=== PATIENT | female | born 1945 | race Caucasian/White ===

== ENCOUNTER 2018-02-07 10:31 | Outpatient (RCR) | payer MEDICARE, OTHER ==
[~2018-02-07 10:31] MED LIST: AMLO5TAB2 PO; ASP325TEC PO; ASPI-587 PO; ASPI1CPM PO; CRESTOR PO; HYDR-3062 PO; HYDR25TA4 PO; OMEP40CA36 PO; TELM1TAB3 PO
== END 2018-02-15 15:28 | disposition home or self-care (01) ==
PROVIDERS: ATTEND Neurological Surgery
DX: M54.2 Cervicalgia (principal); M54.5 Low back pain

== ENCOUNTER 2018-10-18 05:14 | Emergency (ER) | payer MEDICARE, OTHER ==
[~2018-10-18] VITALS: Ht 165.1 cm; Wt 68.0 kg
--- OUTSIDE RECORDS SUMMARY | 2018-10-18 05:20 | XMS REPORT | Continuity of Care Document ---
Author Organization Unknown Address Unknown Allergies Active Description Code Type Severity Reaction Onset Reported/Identified Relationship to Patient Clinical Status Yes iodine [id number] Drug Allergy Unknown N/A 11/29/2013 Yes levofloxacin [id number] Drug Allergy Unknown N/A 11/29/2013 Medications There is no data. Problems Date Dx Coded Attending Type Code Diagnosis Diagnosed By 04/19/1527 ETHEL PECK MD, Ot M54.2 CERVICALGIA 04/19/1527 ETHEL PECK MD, Ot M54.5 LOW BACK PAIN 12/01/2013 AMELIE ENGLE DO Ot 272.4 HYPERLIPIDEMIA NEC/NOS 12/01/2013 AMELIE ENGLE DO Ot 311 DEPRESSIVE DISORDER NEC 12/01/2013 AMELIE ENGLE DO Ot 401.9 HYPERTENSION NOS 12/01/2013 AMELIE ENGLE DO Ot 434.91 CEREBRAL ART OCCLUSION NOS W CEREBRAL IN 12/01/2013 AMELIE ENGLE DO Ot 728.87 MUSCLE WEAKNESS (GENERALIZED) 12/01/2013 AMELIE ENGLE DO Ot 781.94 FACIAL WEAKNESS 12/01/2013 AMELIE ENGLE DO Ot V17.3 FAM HX-ISCHEM HEART DIS 05/10/2014 ANAI JHA MD Ot 401.9 HYPERTENSION NOS 05/10/2014 ANAI JHA MD Ot 782.3 EDEMA 11/30/2017 ETHEL PECK M43.8X5 Other specified deforming dorsopathies, thoracolumbar region 11/30/2017 ETHEL PECK M48.02 Spinal stenosis, cervical region 11/30/2017 ETHEL PECK 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 Results Radiology Report from [id number] on 11/30/2017 16:50:33 DATE OF PROCEDURE: 11/30/2017

ACCESSION NUMBER#: [id number]

PROCEDURES: Cervical spine MRI without contrast.

INDICATION: Neck pain.

COMPARISON: MRI of the cervical spine without contrast dated 08/29/05.

FINDINGS: There is minimal retrolisthesis of C4 on C5 and C5 on C6, similar to the prior exam. Alignment is otherwise unremarkable. There are moderate to advanced degenerative endplate changes at C4-C6, which have progressed since the prior exam. Bone marrow signal is otherwise unremarkable. No abnormal signal in the cervical spinal cord. Subcentimeter T2 hyperintense lesion in the left thyroid lobe is nonspecific. The visualized paravertebral soft tissues are otherwise unremarkable. The cervical carotid and vertebral artery flow voids are preserved.

C2-C3: No spinal canal or neural foraminal narrowing.

C3-C4: Normal progression of posterior disc osteophyte complex, which indents the ventral right cervical cord. No neural foraminal narrowing.

C4-C5: Posterior disc osteophyte complex contacts the cervical cord with no tension. There is moderate left and mild right neural foraminal narrowing. These findings have progressed since prior exam.

C5-C6: Posterior disc osteophyte complex results in moderate spinal canal narrowing where it indents the ventral cervical cord and has progressed since the prior exam. There is advanced left and moderate right neural foraminal narrowing.

C6-C7: No spinal canal or neural foraminal narrowing.

C7-T1: No spinal canal or neural foraminal narrowing.

IMPRESSION:
1. Interval progression of spondylotic changes and results in multilevel spinal canal narrowing detailed above. This is greatest at C5-C6 where it is moderate.
2. Scattered moderate and advanced neural foraminal narrowing also detailed above level by level.
3. No abnormal signal in the cervical spinal cord. No acute osseous findings.

[1528]
DT#: 11/30/2017 [[id number]] Radiology Report from [id number] on 11/30/2017 16:50:33 DATE OF PROCEDURE: 11/30/2017

ACCESSION NUMBER#: [id number]

PROCEDURES: Lumbar spine MRI without contrast.

INDICATIONS: Low back pain. & lt;br>
COMPARISON: None available.

FINDINGS: There is advanced right apex thoracolumbar curvature centered at L1-L2. There is minimal retrolisthesis of L2 on L3. Scattered moderate to advanced degenerative endplate changes. Bone marrow signal is otherwise unremarkable. No abnormal signal in the conus, which terminates at L1. Normal morphology of the cauda equ jennifer. No acute findings in the visualized abdomen or pelvis.

L1-L2: No spinal canal or lateral recess narrowing. The lumbar curvature and disc space height loss results in moderate left neural foraminal narrowing. No right neural foraminal narrowing.

L2-L3: No substantial spinal canal or lateral recess narrowing. Disc space height loss, facet arthropathy and lumbar curvature result in advanced left and moderate right neural foraminal narrowing.

L3-L4: No spinal canal or lateral recess narrowing. There is moderate to advanced bilateral neural foraminal narrowing.

L4-L5: No spinal canal or lateral recess narrowing. There is advanced right neural foraminal narrowing. No left neural foraminal narrowing.

L5-S1: No spinal canal or neural foraminal narrowing. Disc space height loss and facet arthropathy result in moderate right and mild left neural foraminal narrowing.

IMPRESSION:
1. Advanced thoracolumbar scoliotic curvature.
2. scoliosis compliances spondylotic changes result in multilevel moderate and advanced neural foraminal narrowing detailed above.
3. No high-grade spinal canal or lateral recess narrowing.
4. No acute osseous findings.

[1533]
DT#: 11/30/2017 [[id number]] Encounters ACCT No. Visit Date/Time Discharge Status Pt. Type Provider Facility Loc./Unit Complaint [id number] 11/30/2017 11:58:00 11/30/2017 16:58:00 DIS Outpatient ETHEL PECK [id number] 12/01/2017 06:08:03 ACT Document Registration [id number] 02/07/2018 10:31:00 02/15/2018 15:28:00 DIS Outpatient LIV LUJAN, ETHEL Hannon [facility] REHAB UPPER AND LOWER BACK PAIN [id number] 05/10/2014 14:58:00 05/10/2014 17:07:00 DIS Emergency ANAI JHA MD [facility] ER HIGH BP [id number] 11/29/2013 11:46:00 12/01/2013 15:25:00 DIS Inpatient AMELIE ENGLE DO [facility] ICU STROKE SYM
[2018-10-18] MEDS ORDERED: MECLIZINE 25 MG (ANTIVERT) TAB PO STA (05:22)
[2018-10-18] MEDS ORDERED: LACTATED RINGERS 1,000 ML IV ONE (05:22)
[2018-10-18] MEDS ORDERED: SCOPOLAMINE 1.5 MG (TRANSDERM-SCOP) PATCH TD ONE (05:30)
[2018-10-18] MEDS ORDERED: ONDANSETRON 4 MG/2 ML (SDV) Z0FRAN IVP ONE (05:30)
[2018-10-18 05:31] LABS: BASOPHILS % (AUTO) 0 % (0-10); EOSINOPHILS # (AUTO) 0.1 10^3/uL (0.0-0.3); EOSINOPHILS % (AUTO) 1 % (0-10); HEMATOCRIT 36 % (35-52); LYMPHOCYTES % (AUTO) 36 % (12-44); MEAN CORPUSCULAR HEMOGLOBIN 27 PG (25-34); MEAN CORPUSCULAR HGB CONC 33 G/DL (32-36); MEAN CORPUSCULAR VOLUME 83 FL (80-99); MEAN PLATELET VOLUME 8.5 FL (7.4-10.4); MONOCYTES # (AUTO) 0.6 X 10^3 (0.0-1.0); MONOCYTES % (AUTO) 10 % (0-12); NEUTROPHILS % (AUTO) 53 % (42-75); PLATELET COUNT 309 10^3/uL (130-400); WHITE BLOOD COUNT 5.6 10^3/uL (4.3-11.0)
[2018-10-18] MEDS ORDERED: BUPR-168 (05:38)
[2018-10-18] MEDS ORDERED: CLOP75TA28 (05:38)
[2018-10-18] MEDS ORDERED: BACL10TA (05:38)
[2018-10-18] MEDS ORDERED: ROSU10TA27 (05:38)
[2018-10-18] MEDS ORDERED: AMLO5TAB9 (05:38)
[2018-10-18] MEDS ORDERED: TELM1TAB27 (05:38)
[2018-10-18] MEDS ORDERED: NITR100C10 (05:38)
[2018-10-18 05:43] LABS: INR 0.9 (0.8-1.4); PROTHROMBIN TIME PATIENT 12.4 SEC (12.2-14.7)
[2018-10-18 05:51] LABS: ALANINE AMINOTRANSFERASE 17 U/L (0-55); ALBUMIN 4.2 GM/DL (3.2-4.5); ALKALINE PHOSPHATASE 71 U/L (40-136); BILIRUBIN,TOTAL 0.3 MG/DL (0.1-1.0); BUN/CREATININE RATIO 21; CALCIUM 9.7 MG/DL (8.5-10.1); CARBON DIOXIDE 23 MMOL/L (21-32); CHLORIDE 106 MMOL/L (98-107); GFR ESTIMATED > 60; GLUCOSE 111 MG/DL (70-105); POTASSIUM 3.8 MMOL/L (3.6-5.0); SODIUM 137 MMOL/L (135-145); TOTAL PROTEIN 6.5 GM/DL (6.4-8.2)
--- NOTE | 2018-10-18 06:04 | ED General ---
General Chief Complaint: Dizziness/Syncope Stated Complaint: DIZZY Nursing Triage Note: nausea/dizziness Nursing Sepsis Screen: No Definite Risk Source of Information: Patient (PT IS LIMITED HISTORIAN) History of Present Illness Date Seen by Provider: October 18, 2018 Time Seen by Provider: 05:15 Initial Comments PT ARRIVES VIA EMS FROM HOME PT WOKE UP 30 MINUTES AGO AND WAS VERY DIZZY AND NAUSEATED EMS GAVE ZOFRAN 4 MG AND NAUSEA IS BETTER NO HEADACHE NO PARESTHESIAS OR MOTOR DEFICITS NO VISION CHANGES NO FEVER OR RECENT ILLNESS NO CHEST PAIN, NO SHORTNESS OF BREATH, NO PALPITATIONS PT STATES SHE HAS HAD THIS "ONCE BEFORE--WITH THE START OF A MIGRAINE" PT STATES SHE HAS NOT BEEN ILL RECENTLY, BUT PER MED RECONCILIATION, PT HAS BEEN PRESCRIBED: 09/20/18--MECLIZINE AND AMOXIL, BY DR. DUNBAR 09/24/18--BACTRIM, BY DR. DUNBAR 10/04/18--ZITHROMAX, BY DR. PAINTING 10/15/18--MACROBID, BY DR. DUNBAR PT STATES NO MEDICATION CHANGES EXCEPT CRESTOR DOSE WAS INCREASED 2 WEEKS AGO PCP: [facility]IAN: MATT SHAH Allergies and Home Medications Allergies Coded Allergies: iodine (Unverified Allergy, Unknown, 11/29/13) levofloxacin (Unverified Allergy, Unknown, 11/29/13) Home Medications Aspirin 81 Mg Tablet., 81 MG PO DAILY, (Reported) Hydrochlorothiazide 25 Mg Tablet, 25 MG PO DAILY Prescribed by: ANAI JHA on 05/10/14 1655 Meclizine HCl 25 Mg Tablet, 25-50 MG PO Q6H Prescribed by: SHEILA SON on 10/18/18633 Omeprazole 40 Mg Capsule., 40 MG PO DAILY, (Reported) Ondansetron 4 Mg Tab.rapdis, 4 MG PO Q4H Prescribed by: SHEILA SON on 10/18/18633 Scopolamine 1 Each Patch.td72, 1 EACH TD Q72 HOURS Prescribed by: SHEILA SON on 10/18/18633 Patient Home Medication List Home Medication List Reviewed: Yes Review of Systems Review of Systems Constitutional: see HPI; No chills, No diaphoresis; dizziness; No fever, No malaise, No weakness EENTM: no symptoms reported Respiratory: no symptoms reported; No short of breath Cardiovascular: no symptoms reported; No chest pain, No edema, No palpitations, No syncope Gastrointestinal: see HPI; No abdominal pain, No diarrhea; nausea; No vomiting Genitourinary: no symptoms reported Musculoskeletal: no symptoms reported Skin: no symptoms reported Psychiatric/Neurological: No Symptoms Reported; Denies Headache, Denies Numbness, Denies Paresthesia, Denies Seizure, Denies Tingling, Denies Tremors, Denies Weakness Hematologic/Lymphatic: No Symptoms Reported Immunological/Allergic: no symptoms reported Past Vfllpas-Bvcpuq-Xusubf Hx Patient Social History Alcohol Use: Denies Use Recreational Drug Use: No Smoking Status: Never a Smoker 2nd Hand Smoke Exposure: No Recent Foreign Travel: No Contact w/Someone Who Travel: No Recent Infectious Disease Expo: No Recent Hopitalizations: No Immunizations Up To Date Tetanus Booster (TDap): Unknown PED Vaccines UTD: No Date of Pneumonia Vaccine: Nov 29, 2009 Date of Influenza Vaccine: Feb 18, 2014 Seasonal Allergies Seasonal Allergies: Yes Past Medical History Surgeries: Yes (SINUS SURGERY X 2; COLON RESECTION FOR DIVERTICULAR DISEASE; HERNIA REPAIR; HYST/BSO; ) Abdominal, Bowel Surgery, Section, Gallbladder, Hysterectomy Respiratory: No Cardiac: Yes (AAA--NO SURGERY, IS FOLLOWED BY DR. 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 Sexually Transmitted Disease: No HIV/AIDS: No Genitourinary: Yes UTI-Chronic Gastrointestinal: Yes (COLON RESECTION FOR DIVERTICULAR DISEASE; S/P JAQUELINE; S/P HERNIA REPAIR) Abdominal Hernia, Diverticulosis, Gall Bladder Disease Musculoskeletal: Yes Arthritis Endocrine: No HEENT: Yes (CHRONIC SINUSITIS--S/P SINUS SURGERY X 2 ) Loss of Vision: Denies Hearing Impairment: Denies Cancer: No Psychosocial: No Integumentary: No Blood Disorders: No Adverse Reaction/Blood Tranf: No Family Medical History Abdominal aortic aneurysm 19 FATHER Chest pain 19 MOTHER ([place] passed at the age of 85 during and bipass surgery) Congenital heart disease G8 SISTER (quad bi pass) Congestive heart failure 19 FATHER Family history: Diabetes mellitus 19 MOTHER G8 BROTHER (passed 60yro) G8 SISTER Family history: Hypertension 19 FATHER G8 BROTHER G8 BROTHER G8 BROTHER G8 SISTER G8 SISTER G8 SISTER G8 SISTER Hypercholesterolemia G8 BROTHER G8 BROTHER G8 BROTHER G8 SISTER Stroke 19 FATHER 19 MOTHER G8 BROTHER (57 stroke) G8 BROTHER Physical Exam Vital Signs Vital Signs - First Documented 10/18/18 05:15 Temp 97.6 Pulse 93 Resp 16 B/P (MAP) 147/71 (96) Pulse Ox 99 O2 Delivery Room Air Capillary Refill : Less Than 3 Seconds Height, Weight, BMI Height: 5'5.00" Weight: 150lbs. 0.0oz. 68.917782xg; 26.57 BMI Method:Stated General Appearance: No Apparent Distress, WD/WN, Other (SMILING, LAUGHING ON ARRIVAL, MOVES HEAD AND SITS UP ON OWN WITHOUT DIFFICULTY, BUT THEN C/O DIZ ZINESS ON SITTING UP; PT ABLE TO AMBULATE TO AND FROM BATHROOM WITH MINIMAL ASSIST. 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 II- XII Norm as Tested, Other (MILDLY ANXIOUS) Skin: Normal Color, Warm/Dry; No Rash Progress/Results/Core Measures Suspected Sepsis Recent Fever Within 48 Hours: No Infection Criteria Present: Documented Infection New/Unexplained Altered Menta: No Sepsis Screen: No Definite Risk SIRS Temperature:97.6 Pulse: 93 Respiratory Rate: 16 Laboratory Tests 10/18/18 05:20: White Blood Count 5.6 Blood Pressure 147 /71 Mean: 96 Laboratory Tests 10/18/18 05:20: Creatinine 0.80, INR Comment 0.9, Platelet Count 309, Total Bilirubin 0.3 Results/Orders Lab Results Laboratory Tests Test 10/18/18 05:10/18/18 06:00 Range/Units White Blood Count 5.6 4.3-11.0 10^3/uL Red Blood Count 4.39 4.35-5.85 10^6/uL Hemoglobin 12.0 11.5-16.0 G/DL Hematocrit 36 35-52 % Mean Corpuscular Volume 83 80-99 FL Mean Corpuscular Hemoglobin 27 25-34 PG Mean Corpuscular Hemoglobin Concent 33 32-36 G/DL Red Cell Distribution Width 16.0 H 10.0-14.5 % Platelet Count 309 130-400 10^3/uL Mean Platelet Volume 8.5 7.4-10.4 FL Neutrophils (%) (Auto) 53 42-75 % Lymphocytes (%) (Auto) 36 12-44 % Monocytes (%) (Auto) 10 0-12 % Eosinophils (%) (Auto) 1 0-10 % Basophils (%) (Auto) 0 0-10 % Neutrophils # (Auto) 3.0 1.8-7.8 X 10^3 Lymphocytes # (Auto) 2.0 1.0-4.0 X 10^3 Monocytes # (Auto) 0.6 0.0-1.0 X 10^3 Eosinophils # (Auto) 0.1 0.0-0.3 10^3/uL Basophils # (Auto) 0.0 0.0-0.1 10^3/uL Prothrombin Time 12.4 12.2-14.7 SEC INR Comment 0.9 0.8-1.4 Activated Partial Thromboplast Time 30 24-35 SEC Sodium Level 137 135-145 MMOL/L Potassium Level 3.8 3.6-5.0 MMOL/L Chloride Level 106 98-107 MMOL/L Carbon Dioxide Level 23 21-32 MMOL/L Anion Gap 8 5-14 MMOL/L Blood Urea Nitrogen 17 7-18 MG/DL Creatinine 0.80 0.60-1.30 MG/DL Estimat Glomerular Filtration Rate > 60 BUN/Creatinine Ratio 21 Glucose Level 111 H 70-105 MG/DL Calcium Level 9.7 8.5-10.1 MG/DL Corrected Calcium 9.5 8.5-10.1 MG/DL Magnesium Level 2.0 1.8-2.4 MG/DL Total Bilirubin 0.3 0.1-1.0 MG/DL Aspartate Amino Transf (AST/SGOT) 17 5-34 U/L Alanine Aminotransferase (ALT/SGPT) 17 0-55 U/L Alkaline Phosphatase 71 40-136 U/L Troponin I < 0.028 <0.028 NG/ML Total Protein 6.5 6.4-8.2 GM/DL Albumin 4.2 3.2-4.5 GM/DL TSH [place] Testing 1.53 0.35-4.94 UIU/ML Urine Color YELLOW Urine Clarity CLEAR Urine pH 7 5-9 Urine Specific [place] 1.010 L 1.016-1.022 Urine Protein NEGATIVE NEGATIVE Urine Glucose (UA) NEGATIVE NEGATIVE Urine Ketones NEGATIVE NEGATIVE Urine Nitrite NEGATIVE NEGATIVE Urine Bilirubin NEGATIVE NEGATIVE Urine Urobilinogen NORMAL NORMAL MG/DL Urine Leukocyte Esterase NEGATIVE NEGATIVE Urine RBC (Auto) NEGATIVE NEGATIVE Urine RBC NONE /HPF Urine WBC NONE /HPF Urine Squamous Epithelial Cells 0-2 /HPF Urine Crystals NONE /LPF Urine Bacteria NEGATIVE /HPF Urine Casts NONE /LPF Urine Mucus NEGATIVE /LPF Urine Culture Indicated NO My Orders Orders - SHEILA SON DO Ed Iv/Invasive Line Start (10/18/18 05:22) Ekg Tracing (10/18/18 05:22) Monitor-Rhythm Ecg Trace Only (10/18/18 05:22) Ct Head Wo-R/O Stroke (10/18/18 05:22) Chest 1 View, Ap/Pa Only (10/18/18 05:22) Cbc With Automated Diff (10/18/18 05:22) Comprehensive Metabolic Panel (10/18/18 05:22) Magnesium (10/18/18 05:22) Protime With Inr (10/18/18 05:22) Partial Thromboplastin Time (10/18/18 05:22) Thyroid Analyzer (10/18/18 05:22) Troponin I (10/18/18 05:22) Ua Culture If Indicated (10/18/18 05:22) Ed Iv/Invasive Line Start (10/18/18 05:22) Lactated Ringers (Lr 1000 Ml Iv Solution (10/18/18 05:22) Ondansetron Injection (Zofran Injectio (10/18/18 05:30) Meclizine Tablet (Antivert Tablet) (10/18/18 05:22) Scopolamine Patch (Transderm-Scop Patch) (10/18/18 05:30) Medications Given in ED Current Medications Medications Dose Ordered Sig/Kristal Route Start Time Stop Time Status Last Admin Dose Admin Lactated Ringer's 1,000 ml @ 0 mls/hr Q0M ONCE IV 10/18/18 05:22 10/18/18 05:37 DC 10/18/18 05:29 0 MLS/HR Ondansetron HCl 4 mg ONCE ONCE IVP 10/18/18 05:30 10/18/18 05:37 DC 10/18/18 05:30 4 MG Scopolamine 1.5 mg ONCE ONCE TD 10/18/18 05:30 10/18/18 05:37 DC 10/18/18 05:30 1.5 MG Vital Signs/I&O 10/18/18 05:15 Temp 97.6 Pulse 93 Resp 16 B/P (MAP) 147/71 (96) Pulse Ox 99 O2 Delivery Room Air Capillary Refill : Less Than 3 Seconds Blood Pressure Mean: 96 Progress Note : Progress Note NAUSEA IMPROVED WITH ZOFRAN DIZZINESS IMPROVED WITH SCOPOLAMINE AND ANTIVERT NO DETERIORATION IN PT'S CONDITION DURING ER STAY. ECG Initial ECG Impression Date: October 18, 2018 Initial ECG Impression Time: 06:00 Initial ECG Rate: 74 Initial ECG Rhythm: Normal Sinus Diagnostic Imaging Comments CXR--NO ACUTE PROCESS, PENDING RADIOLOGIST REVIEW CT HEAD--NO ACUTE PROCESS, PER [facility] VIA PHONE AT [phone] Reviewed: Reviewed by Me Departure Impression Primary Impression: Vertigo Disposition: HOME, SELF-CARE Condition: Improved Departure-Patient Inst. Referrals: ETHEL PECK MD (PCP) Primary Care Physician BETTINA Patient Instructions: Vertigo (a Type of Dizziness) (DC) Add. Discharge Instructions: HOME, REST LOTS OF CLEAR LIQUIDS SLOW POSITION CHANGES FOLLOW UP WITH YOUR DR ON SUNDAY FOR FURTHER CARE RETURN TO ER IF WORSE All discharge instructions reviewed with patient and/or family. Voiced understanding. Scripts Ondansetron (Ondansetron Odt) 4 Mg Tab.rapdis 4 MG PO Q4H for Nausea/Vomiting, #10 TAB Prov: SHEILA SON DO 10/18/18 Scopolamine (Transderm-Scop) 1 Each Patch.td72 1 EACH TD Q72 HOURS for Dizziness, #3 PATCH Prov: HUYSHEILA K DO 10/18/18 Meclizine HCl (Meclizine HCl) 25 Mg Tablet 25-50 MG PO Q6H for Dizziness, #30 TAB Prov: SHEILA SON DO 10/18/18 SHEILA SON DO October 18, 2018 06:04
[2018-10-18 06:10] LABS: TSH (THYROID ANALYZER) 1.53 UIU/ML (0.35-4.94)
[2018-10-18 06:10] LABS: BILIRUBIN,URINE NEGATIVE (NEGATIVE); CLARITY,URINE CLEAR; COLOR,URINE YELLOW; GLUCOSE, URINE (UA) NEGATIVE (NEGATIVE); KETONES,URINE NEGATIVE (NEGATIVE); LEUKOCYTE ESTERASE ,URINE NEGATIVE (NEGATIVE); NITRITE,URINE NEGATIVE (NEGATIVE); PH,URINE 7 (5-9); PROTEIN,URINE NEGATIVE (NEGATIVE); UROBILINOGEN,URINE NORMAL (NORMAL)
[2018-10-18 06:19] LABS: BACTERIA,URINE NEGATIVE /HPF; SQUAMOUS EPITHELIAL CELL,UR 0-2 /HPF
[2018-10-18] MEDS ORDERED: ONDA4TAB11 PO (06:34)
[2018-10-18] MEDS ORDERED: SCOP1PAT11 TD (06:34)
[2018-10-18] MEDS ORDERED: MECL-106 PO (06:34)
[2018-10-18 06:40] VITALS: BP 127/64
--- NOTE | 2018-10-18 06:41 | Diagnostic Imaging Report ---
PROCEDURE: CT head wo r/o stroke. TECHNIQUE: Multiple contiguous axial images were obtained through the brain without the use of intravenous contrast. Auto Exposure Controls were utilized during the CT exam to meet ALARA standards for radiation dose reduction. DATE: October 18, 2018. COMPARISON: MRI brain December 01, 2013. CT head November 29, 2013. INDICATION: 72-year-old female, dizziness. FINDINGS: The patient is status post functional endoscopic sinus surgery. The visualized portions of the paranasal sinuses, mastoid air cells, and middle ears are well aerated. The ventricles and cerebral spinal fluid spaces are of normal size and configuration for the patient's age. There is no mass effect or midline shift. There is no acute intracranial hemorrhage. There is no abnormal extra-axial fluid collection. IMPRESSION: 1. No identified acute intracranial abnormality. Dictated by: Dictated on workstation # [id number]
--- NOTE | 2018-10-18 06:42 | Diagnostic Imaging Report ---
EXAMINATION: Chest radiograph, portable AP view. DATE: October 18, 2018 at 0540 hours. INDICATION: 72-year-old female, dizziness. COMPARISON: None. FINDINGS: Heart size and mediastinal contours are unremarkable. There is no identified pneumothorax. There is no large pleural effusion. There is no identified focal airspace consolidation. There is a thoracolumbar dextroscoliosis. IMPRESSION: No identified acute cardiopulmonary abnormality. Dictated by: Dictated on workstation # [id number]
== END 2018-10-18 06:43 | disposition home or self-care (01) ==
LOC: EDUNIT# 05:14 → ER 05:16
DX: R42 Dizziness and giddiness (principal); E78.00 Pure hypercholesterolemia, unspecified; I10 Essential (primary) hypertension; G43.909 Migraine, unspecified, not intractable, without status migrainosus; Z82.49 Family history of ischemic heart disease and other diseases of the circulatory system; Z87.19 Personal history of other diseases of the digestive system; Z87.440 Personal history of urinary (tract) infections; Z87.448 Personal history of other diseases of urinary system; Z86.73 Personal history of transient ischemic attack (TIA), and cerebral infarction without residual deficits; Z91.041 Radiographic dye allergy status; Z88.1 Allergy status to other antibiotic agents; Z79.82 Long term (current) use of aspirin; Z98.890 Other specified postprocedural states; Z90.49 Acquired absence of other specified parts of digestive tract; Z90.710 Acquired absence of both cervix and uterus
CPT/HCPCS: 36415; 70450; 71045; 80053; 81000; 83735; 84443; 84484; 85025; 85610; 85730; 93005; 93041; 96361; 96374

== ENCOUNTER 2018-12-09 11:26 | Outpatient (RCR) | payer MEDICARE, OTHER ==
[~2018-12-09 11:26] MED LIST changes: +AMLO5TAB9; +BACL10TA; +BUPR-168; +CLOP75TA28; +MECL-106 PO; +NITR100C10; +ONDA4TAB11 PO; +ROSU10TA28; +SCOP1PAT11 TD; +TELM1TAB27
== END 2019-01-28 10:42 | disposition home or self-care (01) ==
PROVIDERS: ATTEND Podiatrist Foot Surgery
DX: M76.62 Achilles tendinitis, left leg (principal)

== ENCOUNTER 2019-02-10 09:03 | Emergency (ER) | payer MEDICARE, OTHER ==
[~2019-02-10] VITALS: Ht 160 cm; Wt 70.4 kg
[2019-02-10] MEDS ORDERED: ONDANSETRON 4 MG (ZOFRAN) ORAL DISSOLVE TAB SL STA (09:41)
--- NOTE | 2019-02-10 09:47 | ED EENT ---
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 PT STATES SHE CURRENTLY TAKES PLAVIX. NOSE CLAMP APPLIED AT TIME OF TRIAGE. Source: patient Exam Limitations: no limitations (GLENN GRIGGS STUDENT) History of Present Illness Date Seen by Provider: Feb 10, 2019 Time Seen by Provider: 09:30 Initial Comments The patient is a wd/wn 73 y/o female who is here with a chief complaint of nosebleed. She reports that the nosebleed started about 1/2 hour ago. There was no trauma involved and she has not had any previous occurrences. She denies any recent illnesses, rashes, or bruises. She sometimes uses an intranasal steroid but is not currently. She reports having seasonal allergies. Timing/Duration: abrupt, this morning Severity: mild Location: nose (GLENN GRIGGS STUDENT) Timing/Duration: abrupt, this morning Severity: mild Location: nose Prearrival Treatment: squeezing nostrils Associated Symptoms: No cough, No facial pain/swelling, No fever, No sinus infection, No sore throat (BRIAN POON MD) Allergies and Home Medications Allergies Coded Allergies: iodine (Unverified Allergy, Unknown, 11/29/13) levofloxacin (Unverified Allergy, Unknown, 11/29/13) Home Medications Aspirin 81 Mg Tablet.dr, 81 MG PO DAILY, (Reported) Hydrochlorothiazide 25 Mg Tablet, 25 MG PO DAILY Prescribed by: ANAI JHA on 05/10/14 1655 Meclizine HCl 25 Mg Tablet, 25-50 MG PO Q6H Prescribed by: SHEILA SON on 10/18/18633 Omeprazole 40 Mg Capsule.dr, 40 MG PO DAILY, (Reported) Ondansetron 4 Mg Tab.rapdis, 4 MG PO Q4H Prescribed by: SHEILA SON on 10/18/18633 Scopolamine 1 Each Patch.td72, 1 EACH TD Q72 HOURS Prescribed by: SHEILA SON on 10/18/18633 Patient Home Medication List Home Medication List Reviewed: Yes (BRIAN POON MD) Review of Systems Review of Systems Constitutional: No fever, No malaise Nose: clots, epistaxis Respiratory: cough; No short of breath (GLENN GRIGGS STUDENT) Constitutional: see HPI Eyes: No Symptoms Reported Ears: No Symptoms Reported Nose: see HPI, epistaxis; denies pain Respiratory: cough; No short of breath Cardiovascular: no symptoms reported Skin: no symptoms reported (BRIAN POON MD) Past Joruqxx-Tfmfmh-Wsbkyy Hx Past Med/Social Hx: Reviewed Nursing Past Med/Soc Hx (BRIAN POON MD) Patient Social History Alcohol Use: Denies Use Recreational Drug Use: No Smoking Status: Never a Smoker 2nd Hand Smoke Exposure: No Recent Foreign Travel: No Contact w/Someone Who Travel: No Recent Infectious Disease Expo: No Recent Hopitalizations: No Physical Abuse: No Sexual Abuse: No Mistreated: No Fear: No (GLENN GRIGGS) Immunizations Up To Date Tetanus Booster (TDap): Unknown PED Vaccines UTD: No Date of Pneumonia Vaccine: Nov 29, 2009 Date of Influenza Vaccine: Feb 18, 2014 (GLENN GRIGGS) Seasonal Allergies Seasonal Allergies: Yes (GLENN GRIGGS) Past Medical History Surgeries: Yes Abdominal, Bowel Surgery, Section, Gallbladder, Hysterectomy Respiratory: No Cardiac: Yes (AAA--NO SURGERY, IS FOLLOWED BY DR. 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 STUDENT) Family Medical History Reviewed Nursing Family Hx (BRIAN POON MD) Abdominal aortic aneurysm 19 FATHER Chest pain 19 MOTHER (NE passed at the age of 85 during and bipass surgery) Congenital heart disease G8 SISTER (quad bi pass) Congestive heart failure 19 FATHER Family history: Diabetes mellitus 19 MOTHER G8 BROTHER (passed 60yro) G8 SISTER Family history: Hypertension 19 FATHER G8 BROTHER G8 BROTHER G8 BROTHER G8 SISTER G8 SISTER G8 SISTER G8 SISTER Hypercholesterolemia G8 BROTHER G8 BROTHER G8 BROTHER G8 SISTER Stroke 19 FATHER 19 MOTHER G8 BROTHER (57 stroke) G8 BROTHER Physical Exam Vital Signs Vital Signs - First Documented 02/10/19 09:06 Temp 36.2 Pulse 76 Resp 20 B/P (MAP) 152/79 (103) Pulse Ox 100 O2 Delivery Room Air (BRIAN POON MD) Height, Weight, BMI Height: 5'5.00" Weight: 150lbs. 0.0oz. 68.144298th; 27.00 BMI Method:Stated General Appearance: WD/WN, no apparent distress Eyes: bilateral eye PERRL, bilateral eye EOMI Ears: bilateral ear auricle normal, bilateral ear canal normal, bilateral ear TM normal Nose: active bleeding, dried blood Mouth/Throat: normal mouth inspection, pharynx normal Cardiovascular: regular rate, rhythm, no edema, no murmur Respiratory: lungs clear, normal breath sounds Neurologic/Psychiatric: alert, normal mood/affect, oriented x 3 Skin: normal color, warm/dry (GLENN GRIGGS MED STUDENT) General Appearance: WD/WN, no apparent distress Eyes: bilateral eye normal inspection Nose: other (small bruise noted after clamp place. Clamp readjusted. Small amount of blood noted to the posterior pharynx. Inspection of the intranasal area on the left shows no bleeding. On the right shows old blood but not active bleeding. She does appear to have an ooze and clamp was replaced.) Neck: full range of motion, supple Cardiovascular: regular rate, rhythm, no edema Respiratory: lungs clear, normal breath sounds Neurologic/Psychiatric: alert, oriented x 3 (BRIAN POON MD) Progress/Results/Core Measures Results/Orders Lab Results Laboratory Tests Test 02/10/19 09:47 Range/Units White Blood Count 5.2 4.3-11.0 10^3/uL Red Blood Count 4.30 L 4.35-5.85 10^6/uL Hemoglobin 11.8 11.5-16.0 G/DL Hematocrit 36 35-52 % Mean Corpuscular Volume 84 80-99 FL Mean Corpuscular Hemoglobin 27 25-34 PG Mean Corpuscular Hemoglobin Concent 33 32-36 G/DL Red Cell Distribution Width 14.5 10.0-14.5 % Platelet Count 294 130-400 10^3/uL Mean Platelet Volume 8.6 7.4-10.4 FL Neutrophils (%) (Auto) 67 42-75 % Lymphocytes (%) (Auto) 22 12-44 % Monocytes (%) (Auto) 10 0-12 % Eosinophils (%) (Auto) 1 0-10 % Basophils (%) (Auto) 0 0-10 % Neutrophils # (Auto) 3.5 1.8-7.8 X 10^3 Lymphocytes # (Auto) 1.1 1.0-4.0 X 10^3 Monocytes # (Auto) 0.5 0.0-1.0 X 10^3 Eosinophils # (Auto) 0.1 0.0-0.3 10^3/uL Basophils # (Auto) 0.0 0.0-0.1 10^3/uL (BRIAN POON MD) My Orders Orders - BRIAN POON MD Cbc With Automated Diff (02/10/19 09:41) Ondansetron Oral Dissolve Tab (Zofran (02/10/19 09:41) Oxymetazoline 0.05% Nasal [place] (Afrin 0. (02/10/19 21:00) Oxymetazoline 0.05% Nasal [place] (Afrin 0. (02/10/19 10:43) (BRIAN POON MD) Vital Signs/I&O 02/10/19 09:06 Temp 36.2 Pulse 76 Resp 20 B/P (MAP) 152/79 (103) Pulse Ox 100 O2 Delivery Room Air (BRIAN POON MD) Blood Pressure Mean: 103 Progress Progress Note : Time: 09:45 Progress Note The patient is resting comfortably in the exam room. Nasal compression is appl ied and bleeding has slowed. She will be examined with CBC, and bleeding studies. (GLENN GRIGGS MED STUDENT) Progress Note : Progress Note I had seen and evaluated the patient and agree with above except as indicated. I Have directed the plan of care. Patient is here with acute onset of nosebleed about 30 minutes prior to arrival. She is on Plavix. Nose clamp placed on arrival. Still had small amount of oozing noted and clamp repositioned. She did cool water rinses of the mouth and posterior pharynx. We will check CBC. Monitor patient. 1115: We have tried waiting time and continued clamping but knows continue to bleed. She is developing blood clots in the posterior pharynx. This does appear to be more posterior. Ultimately we placed a 7.5 cm rapid Rhino after Afrin nasal spray. We were able to achieve good hemostasis and no more bleeding noted. I did call and make appointment for her at Dr. De Jesus's office for 02/14/19 at 3:45 PM for recheck. They have requested initiation of antibiotics and we will initiate Keflex As a prescription. Overall feeling better. I will send a copy of the chart to Dr. De Jesus's office. Discharged home with return precautions. Patient verbalize understanding instructions and agreement with plan. (BRIAN POON MD) Departure Impression Primary Impression: Epistaxis Disposition: HOME, SELF-CARE Condition: Stable Departure-Patient Inst. Decision time for Depature: 11:19 (BRIAN POON MD) Referrals: LUCIO MONDRAGON DPRanjit (PCP) Primary Care Physician Patient Instructions: Nosebleeds (DC) Add. Discharge Instructions: All discharge instructions reviewed with patient and/or family. Voiced understanding. Keep the packing in place until seen on Sunday at Dr. De Jesus's office. You have appointment with Dr. De Jesus's office at 3:45 PM on 02/14/19 at his office in [place]. Take medications as directed. Return to the emergency department earlier if you have return of bleeding, fever, vomiting, weakness or other concerns as needed. You may take Tylenol/acetaminophen up to 1000 mg every 6-8 hours as needed for pain. Scripts Cephalexin (Cephalexin) 500 Mg Tablet 500 MG PO TID, #21 TAB 0 Refills Prov: BRIAN POON MD 02/10/19 Copy Copies To 1: RIMA DE JESUS MD, JOSHUA K MED STUDENT Feb 10, 2019 09:47 BRAIN PONO MD Feb 10, 2019 10:04
[2019-02-10 09:56] LABS: BASOPHILS % (AUTO) 0 % (0-10); EOSINOPHILS # (AUTO) 0.1 10^3/uL (0.0-0.3); EOSINOPHILS % (AUTO) 1 % (0-10); HEMATOCRIT 36 % (35-52); HEMOGLOBIN 11.8 G/DL (11.5-16.0); LYMPHOCYTES # (AUTO) 1.1 X 10^3 (1.0-4.0); LYMPHOCYTES % (AUTO) 22 % (12-44); MEAN CORPUSCULAR HEMOGLOBIN 27 PG (25-34); MEAN CORPUSCULAR HGB CONC 33 G/DL (32-36); MEAN CORPUSCULAR VOLUME 84 FL (80-99); MEAN PLATELET VOLUME 8.6 FL (7.4-10.4); MONOCYTES # (AUTO) 0.5 X 10^3 (0.0-1.0); MONOCYTES % (AUTO) 10 % (0-12); NEUTROPHILS # (AUTO) 3.5 X 10^3 (1.8-7.8); NEUTROPHILS % (AUTO) 67 % (42-75); PLATELET COUNT 294 10^3/uL (130-400); RED CELL DISTRIBUTION WIDTH 14.5 % (10.0-14.5); WHITE BLOOD COUNT 5.2 10^3/uL (4.3-11.0)
[2019-02-10] MEDS ORDERED: OXYMETAZOLINE (AFRIN) 0.05% NA 15 ML BTL ONE (10:43)
[2019-02-10] MEDS ORDERED: CEPH500T PO (11:21)
[2019-02-10 11:30] VITALS: BP 145/76
[2019-02-10] MEDS ORDERED: OXYMETAZOLINE (AFRIN) 0.05% NA 15 ML BTL SCH (21:00)
== END 2019-02-10 11:30 | disposition home or self-care (01) ==
LOC: EDUNIT# 09:03 → ER 09:04
DX: R04.0 Epistaxis (principal); I10 Essential (primary) hypertension; E78.00 Pure hypercholesterolemia, unspecified; G43.909 Migraine, unspecified, not intractable, without status migrainosus; Z86.73 Personal history of transient ischemic attack (TIA), and cerebral infarction without residual deficits; Z88.8 Allergy status to other drugs, medicaments and biological substances; Z88.1 Allergy status to other antibiotic agents; Z87.440 Personal history of urinary (tract) infections; Z90.49 Acquired absence of other specified parts of digestive tract; Z79.82 Long term (current) use of aspirin; Z90.710 Acquired absence of both cervix and uterus; Z90.722 Acquired absence of ovaries, bilateral; Z82.49 Family history of ischemic heart disease and other diseases of the circulatory system
CPT/HCPCS: 36415; 85025

== ENCOUNTER 2021-04-07 21:00 | Emergency (ER) | payer MEDICARE, OTHER ==
[~2021-04-07] VITALS: Ht 157.5 cm; Wt 68.0 kg
[~2021-04-07 21:00] MED LIST changes: +AMLO-250; -AMLO5TAB9; +CEPH500T PO; -MECL-106 PO; +MECL-149 PO; +SCOP1PAT10 TD; -SCOP1PAT11 TD; -TELM1TAB27; +TELM1TAB36
[2021-04-07] MEDS ORDERED: potassium (21:16)
[2021-04-07] MEDS ORDERED: PANT40TA52 (21:16)
[2021-04-07] MEDS ORDERED: SPIR25TA5 (21:16)
[2021-04-07] MEDS ORDERED: KETOROLAC 30 MG/ML VIAL IVP ONE (21:30)
[2021-04-07] MEDS ORDERED: ONDANSETRON 4 MG/2 ML (SDV) Z0FRAN IVP ONE (21:30)
[2021-04-07] MEDS ORDERED: LACTATED RINGERS 1,000 ML IV SCH (21:30)
[2021-04-07] MEDS ORDERED: MECLIZINE 25 MG (ANTIVERT) TAB PO ONE (21:30)
--- NOTE | 2021-04-07 21:36 | ED General ---
General Chief Complaint: Dizziness/Syncope Stated Complaint: DIZZINESS/LIGHTHEADED/NAUSEA Nursing Triage Note: c/o dizziness, nausea, headache. Source of Information: Patient Exam Limitations: No Limitations (RITA BOGGS APRN) History of Present Illness Date Seen by Provider: Apr 07, 2021 Time Seen by Provider: 21:32 Initial Comments To ER by private vehicle with reports of dizziness nausea headache that began earlier this evening. She gets headaches about once a month but does not usually have dizziness associated with it. The dizziness is worse when she lays flat. She has nausea as well. She denies any shortness of breath though she has had a cough. She has had some diarrhea but recently started Metamucil which seemed to help. She reports that over the past 15 years she has had C. difficile [address] Ramirez from gastroenterology. After starting the Metamucil her stools have firmed up. She denies any fevers mucousy or bloody stools or abdominal pain. Timing/Duration: 1-2 Days Severity: Moderate Associated Systoms: Cough; No Fever/Chills; Headaches, Nausea/Vomiting; No Weakness (RITA BOGGS APRN) Allergies and Home Medications Allergies Coded Allergies: iodine (Unverified Allergy, Unknown, 11/29/13) levofloxacin (Unverified Allergy, Unknown, 11/29/13) Patient Home Medication List Home Medication List Reviewed: Yes (RITA BOGGS APRN) Bupropion HCl (Bupropion HCl) 75 Mg Tablet, (Reported) Entered as Reported by: ANTWON JAMIL on 10/18/18537 Last Action: Last Taken Edited Omeprazole (Omeprazole) 40 Mg Capsule.dr 40 MG PO DAILY, (Reported) Entered as Reported by: YARIEL CHERRY on 11/29/13 0935 Last Action: Last Taken Edited Pantoprazole Sodium (Pantoprazole Sodium) 40 Mg Tablet., (Reported) Entered as Reported by: ANTWON JAMIL on 04/07/212115 Last Action: New Order Rosuvastatin Calcium (Rosuvastatin Calcium) 10 Mg Tablet, (Reported) Entered as Reported by: ANTWON JAMIL on 10/18/18537 Last Action: Last Taken Edited Spironolactone (Spironolactone) 25 Mg Tablet, (Reported) Entered as Reported by: ANTWON JAMIL on 04/07/212115 Last Action: New Order Telmisartan/Hydrochlorothiazid (Telmisartan-Hctz 80-12.5 mg Tb) 1 Each Tablet, (Reported) Entered as Reported by: ANTWON JAMIL on 10/18/18537 Last Action: Last Taken Edited [potassium] , (Reported) Entered as Reported by: ANTWON JAMIL on 04/07/212115 Last Action: New Order Discontinued Medications Amlodipine Besylate (Amlodipine Besylate) 5 Mg Tablet, (Reported) Discontinued Reason: No Longer Taking Entered as Reported by: ANTWON JAMIL on 10/18/18537 Last Action: Discontinued Aspirin (Aspir 81) 81 Mg Tablet.dr, 81 MG PO DAILY, (Reported) Discontinued Reason: No Longer Taking Entered as Reported by: EVERETTE REDDY on 05/10/14 1533 Last Action: Discontinued Baclofen (Baclofen) 10 Mg Tablet, (Reported) Discontinued Reason: No Longer Taking Entered as Reported by: ANTWON JAMIL on 10/18/18537 Last Action: Discontinued Bupropion HCl (Bupropion HCl) 75 Mg Tablet, (Reported) Discontinued Reason: No Longer Taking Entered as Reported by: ANTWON JAMIL on 10/18/18537 Last Action: Discontinued Cephalexin (Cephalexin) 500 Mg Tablet, 500 MG PO TID Discontinued Reason: No Longer Taking Prescribed by: BRIAN POON on 02/10/19 1121 Last Action: Discontinued Clopidogrel Bisulfate (Clopidogrel) 75 Mg Tablet, (Reported) Discontinued Reason: No Longer Taking Entered as Reported by: ANTWON JAMIL on 10/18/18537 Last Action: Discontinued Hydrochlorothiazide (Hydrochlorothiazide) 25 Mg Tablet, 25 MG PO DAILY Discontinued Reason: No Longer Taking Prescribed by: ANAI JHA on 05/10/14 1655 Last Action: Discontinued Meclizine HCl (Meclizine HCl) 25 Mg Tablet, 25-50 MG PO Q6H Discontinued Reason: No Longer Taking Prescribed by: SHEILA SON on 10/18/18633 Last Action: Discontinued Nitrofurantoin Monohyd/M-Cryst (Nitrofurantoin Mcpherson-Mcr 100 mg) 100 Mg Capsule, (Reported) Discontinued Reason: No Longer Taking Entered as Reported by: ANTWON JAMIL on 10/18/18537 Last Action: Discontinued Ondansetron (Ondansetron Odt) 4 Mg Tab.rapdis, 4 MG PO Q4H Discontinued Reason: No Longer Taking Prescribed by: SHEILA SON on 10/18/18633 Last Action: Discontinued Scopolamine (Transderm-Scop) 1 Each Patch.td72, 1 EACH TD Q72 HOURS Discontinued Reason: No Longer Taking Prescribed by: SHEILA SON on 10/18/18633 Last Action: Discontinued Review of Systems Review of Systems Constitutional: see HPI, malaise, weakness EENTM: see HPI Respiratory: see HPI, cough Cardiovascular: no symptoms reported Genitourinary: no symptoms reported Musculoskeletal: no symptoms reported Skin: no symptoms reported Psychiatric/Neurological: No Symptoms Reported Hematologic/Lymphatic: No Symptoms Reported (RITA BOGGS APRN) Past Vkwhrgb-Rtnuyw-Pvkwdx Hx Patient Social History Tobacco Use?: No Substance use?: No Alcohol Use?: No Pt feels they are or have been: No (RITA BOGGS APRN) Immunizations Up To Date Tetanus Booster (TDap): Unknown PED Vaccines UTD: No (RITA BOGGS APRN) Seasonal Allergies Seasonal Allergies: Yes (RITA BOGGS APRN) Past Medical History Surgery/Hospitalization HX: htn,high cholesterol, headaches, c-diff, c-spine sx. Surgeries: Yes Abdominal, Bowel Surgery, Section, Gallbladder, Hysterectomy Respiratory: No Cardiac: Yes (AAA--NO SURGERY, IS FOLLOWED BY DR. 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 Sexually Transmitted Disease: No HIV/AIDS: No Genitourinary: Yes UTI-Chronic Gastrointestinal: Yes (COLON RESECTION FOR DIVERTICULAR DISEASE; S/P JAQUELINE; S/P HERNIA REPAIR) Abdominal Hernia, Diverticulosis, Gall Bladder Disease Musculoskeletal: Yes Arthritis Endocrine: No HEENT: Yes (CHRONIC SINUSITIS--S/P SINUS SURGERY X 2 ) Loss of Vision: Denies Hearing Impairment: Denies Cancer: No Psychosocial: No Integumentary: No Blood Disorders: No Adverse Reaction/Blood Tranf: No (RITA BOGGS APRN) Family Medical History Abdominal aortic aneurysm 19 FATHER Chest pain 19 MOTHER (MA passed at the age of 85 during and bipass surgery) Congenital heart disease G8 SISTER (quad bi pass) Congestive heart failure 19 FATHER Family history: Diabetes mellitus 19 MOTHER G8 BROTHER (passed 60yro) G8 SISTER Family history: Hypertension 19 FATHER G8 BROTHER G8 BROTHER G8 BROTHER G8 SISTER G8 SISTER G8 SISTER G8 SISTER Hypercholesterolemia G8 BROTHER G8 BROTHER G8 BROTHER G8 SISTER Stroke 19 FATHER 19 MOTHER G8 BROTHER (57 stroke) G8 BROTHER Physical Exam Vital Signs Vital Signs - First Documented 04/07/21 21:06 Temp 36.8 Pulse 89 Resp 16 B/P (MAP) 149/87 (107) Pulse Ox 99 O2 Delivery Room Air (KYA GARRETT MD) Vital Signs Capillary Refill : Less Than 3 Seconds (RITA BOGGS APRN) Height, Weight, BMI Height: 5'5.00" Weight: 150lbs. 0.0oz. 68.782206bc; 27.00 BMI Method:Stated General Appearance: No Apparent Distress, WD/WN, Other (Alert and oriented no distress. Blood pressure 131/80, heart rate in the 90s. GCS 15 alert and oriented very pleasant. Anxious appearing.) Eyes: Bilateral Eye Normal Inspection, Bilateral Eye PERRL, Bilateral Eye EOMI HEENT: PERRL/EOMI, TMs Normal Neck: Full Range of Motion, Normal Inspection Respiratory: No Accessory Muscle Use, No Respiratory Distress Cardiovascular: Regular Rate, Rhythm, Normal Peripheral Pulses Gastrointestinal: Normal Bowel Sounds, Non Tender, Soft Extremity: Normal Capillary Refill, Normal Inspection Neurologic/Psychiatric: Alert, Oriented x3 Skin: Normal Color, Warm/Dry (RITA BOGGS APRN) Neurologic/Psychiatric: Alert, Oriented x3, No Motor/Sensory Deficits, Normal Mood/Affect, flash welder II-XII Norm as Tested, Other (no nystagmus noted; normal finger to nose bilaterally; gait assessed, not ataxic) (KYA GARRETT MD) Progress/Results/Core Measures Suspected Sepsis SIRS Temperature: Pulse: 89 Respiratory Rate: 16 Blood Pressure 149 /87 Mean: 107 (RITA BOGGS APRN) Results/Orders Lab Results Laboratory Tests Test 04/07/21 21:16 04/07/21 21:29 04/07/21 22:36 Range/Units White Blood Count 7.8 4.3-11.0 10^3/uL Red Blood Count 4.78 3.80-5.11 10^6/uL Hemoglobin 14.4 11.5-16.0 g/dL Hematocrit 44 35-52 % Mean Corpuscular Volume 92 80-99 fL Mean Corpuscular Hemoglobin 30 25-34 pg Mean Corpuscular Hemoglobin Concent 33 32-36 g/dL Red Cell Distribution Width 13.3 10.0-14.5 % Platelet Count 291 130-400 10^3/uL Mean Platelet Volume 8.7 L 9.0-12.2 fL Immature Granulocyte % (Auto) 0 % Neutrophils (%) (Auto) 61 42-75 % Lymphocytes (%) (Auto) 28 12-44 % Monocytes (%) (Auto) 9 0-12 % Eosinophils (%) (Auto) 1 0-10 % Basophils (%) (Auto) 0 0-10 % Neutrophils # (Auto) 4.8 1.8-7.8 10^3/uL Lymphocytes # (Auto) 2.2 1.0-4.0 10^3/uL Monocytes # (Auto) 0.7 0.0-1.0 10^3/uL Eosinophils # (Auto) 0.1 0.0-0.3 10^3/uL Basophils # (Auto) 0.0 0.0-0.1 10^3/uL Immature Granulocyte # (Auto) 0.0 0.0-0.1 10^3/uL Sodium Level 139 135-145 MMOL/L Potassium Level 4.1 3.6-5.0 MMOL/L Chloride Level 105 98-107 MMOL/L Carbon Dioxide Level 21 21-32 MMOL/L Anion Gap 13 5-14 MMOL/L Blood Urea Nitrogen 14 7-18 MG/DL Creatinine 0.83 0.60-1.30 MG/DL Estimat Glomerular Filtration Rate 67 BUN/Creatinine Ratio 17 Glucose Level 107 H 70-105 MG/DL Calcium Level 10.7 H 8.5-10.1 MG/DL Corrected Calcium 8.5-10.1 MG/DL Total Bilirubin 0.5 0.1-1.0 MG/DL Aspartate Amino Transf (AST/SGOT) 21 5-34 U/L Alanine Aminotransferase (ALT/SGPT) 20 0-55 U/L Alkaline Phosphatase 78 40-136 U/L Total Protein 7.1 6.4-8.2 GM/DL Albumin 4.6 H 3.2-4.5 GM/DL SARS-CoV-2 RNA (RT-PCR) Not Detected Not Detecte Urine Color YELLOW Urine Clarity CLEAR Urine pH 6.0 5-9 Urine Specific [place] 1.015 L 1.016-1.022 Urine Protein NEGATIVE NEGATIVE Urine Glucose (UA) NEGATIVE NEGATIVE Urine Ketones NEGATIVE NEGATIVE Urine Nitrite NEGATIVE NEGATIVE Urine Bilirubin NEGATIVE NEGATIVE Urine Urobilinogen 0.2 < = 1.0 MG/DL Urine Leukocyte Esterase NEGATIVE NEGATIVE Urine RBC (Auto) TRACE-I H NEGATIVE Urine RBC 0-2 /HPF Urine WBC RARE /HPF Urine Squamous Epithelial Cells 0-2 /HPF Urine Crystals NONE /LPF Urine Bacteria TRACE /HPF Urine Casts NONE /LPF Urine Mucus NEGATIVE /LPF Urine Culture Indicated NO (KYA GARRETT MD) My Orders Orders - KYA GARRETT MD Ct Head Wo (04/07/21 22:55) (KYA GARRETT MD) Medications Given in ED Current Medications Medications Dose Ordered Sig/Kristal Route Start Time Stop Time Status Last Admin Dose Admin Ketorolac Tromethamine 15 mg ONCE ONCE IVP 04/07/21 21:30 04/07/21 21:31 DC 04/07/21 21:34 15 MG Meclizine HCl 25 mg ONCE ONCE PO 04/07/21 21:30 04/07/21 21:31 DC 04/07/21 21:33 25 MG Ondansetron HCl 4 mg ONCE ONCE IVP 04/07/21 21:30 04/07/21 21:31 DC 04/07/21 21:34 4 MG (KYA GARRETT MD) Vital Signs/I&O 04/07/21 21:06 Temp 36.8 Pulse 89 Resp 16 B/P (MAP) 149/87 (107) Pulse Ox 99 O2 Delivery Room Air 04/08/21 00:00 Intake Total 1000 ml Balance 1000 ml (KYA GARRETT MD) Vital Signs/I&O Capillary Refill : Less Than 3 Seconds (RITA BOGGS APRN) Blood Pressure Mean: 107 Progress Note : Time: 22:56 Progress Note Patient care assumed from Rita Boggs NP with studies pending. 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 She drove home, was sitting on the toilet and started feeling very sick. Frontal headache. Feeling off balance and nausea. remote history of stroke, on plavix, with minimal residual left arm weakness. Occasional headaches in the past. She thought this was just a migraine coming on. Finished antibiotics for a UTI yesterday. Had a little sinus congestion yesterday. No trauma/falls. No vision change or speech change. No new weakness, numbness in her extremities. [facility] Torad[facility], Zofran, meclizine and fluids. States her headache is much improved, but up to the bathroom, still feels a little dizzy. Patient has an iodine allergy and is very apprehensive about a CTA with contrast. I recommended at the very least we do a non contrast Head CT. SHe is agreeable. VSS. No neuro deficits noted. 0006 Patient feeling better. Walked with minimal assist. Finger to nose is good. No indications for acute cerebellar stroke. Patient is comfortable with discharge. Advised her to follow up with Dr Choudhury tomorrow. Return precautions given. She verbalizes understanding and all questions are sought and answered. (KYA GARRETT MD) Diagnostic Imaging Diagonstic Imaging: CT Comments [facility], [place] NAME: [facility] REC#: [id number] PT STATUS: REG ER : 1945 PHYSICIAN: KYA GARRETT MD ADMIT DATE: 04/07/21/ER Draft Date of Exam:04/07/21 CT HEAD WO PROCEDURE: CT head without contrast. TECHNIQUE: Multiple contiguous axial images were obtained through the brain without the use of intravenous contrast. Auto Exposure Controls were utilized during the CT exam to meet ALARA standards for radiation dose reduction. INDICATION: Headache. Dizziness. COMPARISON: 10/18/2018. FINDINGS: Moderate generalized parenchymal volume loss. No CT evidence of territorial infarction. Intracranial vascular calcifications. No intracranial hemorrhage, mass effect, hydrocephalus or extra-axial fluid collections. Osseous structures are intact. Paranasal sinuses and mastoids are clear. IMPRESSION: No acute intracranial CT findings. Dictated on workstation # [id number] Dict: 04/07/21 2329 Trans: 04/07/21 2356 [facility] [id number] Interpreted by: NELSON GEORGE MD Electronically signed by: (KYA GARRETT MD) Departure Impression Primary Impression: Headache Qualified Codes: R51.9 - Headache, unspecified Additional Impression: Dizziness Disposition: 01 HOME, SELF-CARE Condition: Stable Departure-Patient Inst. Decision time for Depature: 00:08 (KYA GARRETT MD) Referrals: FRANTZ CHOUDHURY DO (PCP/Family) Primary Care Physician Patient Instructions: Headache, Adult ED Add. Discharge Instructions: Continue your daily medications as prescribed. Meclizine 25mg every 6 hours as needed for dizziness. Zofran 4mg every 8 hours as needed for nausea. If you have any worsening symptoms, numbness or weakness, vision changes or speech difficulty, please come back to the Emergency Department for re- evaluation. Follow up with Dr Choudhury. Scripts Meclizine HCl (Meclizine HCl) 25 Mg Tablet 25 MG PO Q6H PRN for dizziness, #20 TAB Prov: KYA GARRETT MD 04/08/21 Ondansetron (Ondansetron Odt) 4 Mg Tab.rapdis 4 MG PO Q8H PRN for nausea, #15 TAB Prov: KYA GARRETT MD 04/08/21 RITA BOGGS APRN Apr 07, 2021 21:36 KYA GARRETT MD Apr 07, 2021 23:01
[2021-04-07 21:38] LABS: BASOPHILS % (AUTO) 0 % (0-10); EOSINOPHILS # (AUTO) 0.1 10^3/uL (0.0-0.3); EOSINOPHILS % (AUTO) 1 % (0-10); HEMATOCRIT 44 % (35-52); HEMOGLOBIN 14.4 g/dL (11.5-16.0); LYMPHOCYTES # (AUTO) 2.2 10^3/uL (1.0-4.0); LYMPHOCYTES % (AUTO) 28 % (12-44); MEAN CORPUSCULAR HEMOGLOBIN 30 pg (25-34); MEAN CORPUSCULAR HGB CONC 33 g/dL (32-36); MEAN CORPUSCULAR VOLUME 92 fL (80-99); MEAN PLATELET VOLUME 8.7 fL (9.0-12.2); MONOCYTES # (AUTO) 0.7 10^3/uL (0.0-1.0); MONOCYTES % (AUTO) 9 % (0-12); NEUTROPHILS # (AUTO) 4.8 10^3/uL (1.8-7.8); NEUTROPHILS % (AUTO) 61 % (42-75); PLATELET COUNT 291 10^3/uL (130-400); WHITE BLOOD COUNT 7.8 10^3/uL (4.3-11.0)
[2021-04-07 21:41] LABS: ALBUMIN 4.6 GM/DL (3.2-4.5); CHLORIDE 105 MMOL/L (98-107); POTASSIUM 4.1 MMOL/L (3.6-5.0); SODIUM 139 MMOL/L (135-145)
[2021-04-07 21:42] LABS: CALCIUM 10.7 MG/DL (8.5-10.1)
[2021-04-07 21:43] LABS: GLUCOSE 107 MG/DL (70-105); TOTAL PROTEIN 7.1 GM/DL (6.4-8.2)
[2021-04-07 21:44] LABS: CARBON DIOXIDE 21 MMOL/L (21-32)
[2021-04-07 21:45] LABS: BILIRUBIN,TOTAL 0.5 MG/DL (0.1-1.0)
[2021-04-07 21:47] LABS: ALKALINE PHOSPHATASE 78 U/L (40-136); CREATININE SERUM 0.83 MG/DL (0.60-1.30); GFR ESTIMATED 67
[2021-04-07 21:48] LABS: BUN/CREATININE RATIO 17
[2021-04-07 21:50] LABS: ALANINE AMINOTRANSFERASE 20 U/L (0-55)
[2021-04-07 22:41] LABS: BILIRUBIN,URINE NEGATIVE (NEGATIVE); CLARITY,URINE CLEAR; COLOR,URINE YELLOW; GLUCOSE, URINE (UA) NEGATIVE (NEGATIVE); KETONES,URINE NEGATIVE (NEGATIVE); LEUKOCYTE ESTERASE ,URINE NEGATIVE (NEGATIVE); NITRITE,URINE NEGATIVE (NEGATIVE); PROTEIN,URINE NEGATIVE (NEGATIVE)
[2021-04-07 22:52] LABS: RBC,URINE 0-2 /HPF; WBC,URINE RARE /HPF
[2021-04-07 22:53] LABS: BACTERIA,URINE TRACE /HPF; SQUAMOUS EPITHELIAL CELL,UR 0-2 /HPF
--- NOTE | 2021-04-07 23:56 | Diagnostic Imaging Report ---
PROCEDURE: CT head without contrast. TECHNIQUE: Multiple contiguous axial images were obtained through the brain without the use of intravenous contrast. Auto Exposure Controls were utilized during the CT exam to meet ALARA standards for radiation dose reduction. INDICATION: Headache. Dizziness. COMPARISON: 10/18/2018. FINDINGS: Moderate generalized parenchymal volume loss. No CT evidence of territorial infarction. Intracranial vascular calcifications. No intracranial hemorrhage, mass effect, hydrocephalus or extra-axial fluid collections. Osseous structures are intact. Paranasal sinuses and mastoids are clear. IMPRESSION: No acute intracranial CT findings. Dictated by: Dictated on workstation # [id number]
[2021-04-08] MEDS ORDERED: MECL-149 PO (00:11)
[2021-04-08] MEDS ORDERED: ONDA4TAB11 PO (00:11)
[2021-04-08 00:17] VITALS: BP 144/78
== END 2021-04-08 00:17 | disposition home or self-care (01) ==
LOC: EDUNIT# 21:00 → ER 21:02
DX: R51.9 Headache, unspecified (principal); R42 Dizziness and giddiness; I10 Essential (primary) hypertension; E78.00 Pure hypercholesterolemia, unspecified; Z86.73 Personal history of transient ischemic attack (TIA), and cerebral infarction without residual deficits; Z20.822 Contact with and (suspected) exposure to COVID-19; Z79.899 Other long term (current) drug therapy
CPT/HCPCS: 36415; 70450; 80053; 81000; 85025; 87636